=== PATIENT | male | born 1995 | race Caucasian/White ===

== ENCOUNTER 2018-11-20 16:38 | Emergency (ER) | payer MEDICAID ==
[~2018-11-20] VITALS: Wt 60.9 kg
--- NOTE | 2018-11-20 18:13 | ERD ---
ER Documentation Chief Complaint Chief Complaint bib self, cc; cwp and cough since thanks giving HPI 23-year-old male, previously healthy, presents to the emergency department, complaining of 2 months with intermittent episodes of chest pain and cough. The patient states that his mother recently passed of lung cancer and he is very concerned about his lungs, he politely is requesting chest x-rays. Otherwise, he denies fevers, no chills, no shortness of breath, no dizziness. ROS All systems reviewed and are negative except as per history of present illness. Medications Home Meds Active Scripts Acetaminophen* (Tylenol*) 325 Mg Tablet, 2 TAB PO Q8 PRN for PAIN AND OR ELEVATED TEMP, #20 TAB Prov:ALEXI BYRNE MD 11/20/18 Allergies Allergies: Coded Allergies: No Known Allergy (Unverified , 11/20/18) PMhx/Soc Medical and Surgical Hx: pt denies Medical Hx, pt denies Surgical Hx Hx Alcohol Use: No Hx Substance Use: No Hx Tobacco Use: No Smoking Status: Never smoker Physical Exam Vitals Physical Exam Const: No acute distress Head: Atraumatic Eyes: Normal Conjunctiva ENT: Normal External Ears, Nose and Mouth. Neck: Full range of motion. No meningismus. Resp: Clear to auscultation bilaterally Cardio: Regular rate and rhythm, no murmurs Abd: Soft, non tender, non distended. Normal bowel sounds Skin: No petechiae or rashes Back: No midline or flank tenderness Ext: No cyanosis, or edema Neur: Awake and alert Psych: Normal Mood and Affect Results 24 hrs DIAGNOSTIC IMAGING REPORT Patient: ABIOLA REYNOSO : 1995 Age: 23 Sex: M [id number] DOS: 11/20/18 1812 Ordering MD: ALEXI BYRNE MD Location: [facility] Room/Bed: PROCEDURE: XR Chest PA and Lateral CLINICAL INDICATION: Chest wall pain TECHNIQUE: PA and Lateral views of the chest were obtained. COMPARISON: None. FINDINGS: Cardiovascular: The cardiovascular silhouette appears unremarkable. Lung Luo: The lung luo appear clear with no nodule, alveolar infiltrate, or interstitial prominence evident. Pleural Spaces: No pneumothorax is identified and no effusion is evident. Osseous Structures: The osseous structures appear intact. Soft Tissues: The soft tissues appear unremarkable. IMPRESSION: Unremarkable chest. Physician Camron Date Time Electronically viewed and signed by Esha Eubanks Physician on 11/20/2018 18:32 Procedures/MDM Vital signs stable. Differential diagnosis include but not limited to: URI, PNA, chostochondritis, GERD, musculoskeletal injury, less likely PE, pericarditis, endocarditis. Pertinent Data: 12 Lead ECG: Sinus rhythm, no ST changes, normal T wave, normal intervals Radiology: Chest x-rays: Normal Physical examination and clinical presentation consistent most likely with atypical chest pain most likely secondary to anxiety. During the ED course the patient remained stable, no new complaints. Results and clinical impression discussed with patient who agrees with management. The patient is stable to be treated outpatient and will be discharged home. The patient was instructed to follow up with the primary care provider in the next 48h. If symptoms persist, worsen or new symptoms develop, then patient should return to the ED immediately. Instructions explained and given directly by me to the patient with acknowledgment and demonstrated understanding. Disclaimer: Inadvertent spelling and grammatical errors are likely due to EHR/dictation software use and do not reflect on the overall quality of patient care. Also, please note that the electronic time recorded on this note does not necessarily reflect the actual time of the patient encounter. Departure Diagnosis: Primary Impression: Chest wall pain Condition: Stable Additional Instructions: Thank you very much for allowing us to participate in your care. Your health and safety is our top priority at [facility]. Call your primary care doctor TOMORROW for an appointment during the next 2-4 days and bring all the information and medications prescribed. Have prescriptions filled and follow precisely the directions on the label. If the symptoms get worse and your provider is unavailable, return to the Emergency Department immediately. ALEXI BYRNE MD Nov 20, 2018 18:13
[2018-11-20] MEDS ORDERED: ACET325T33 PO (18:47)
[2018-11-20 18:55] VITALS: BP 120/65; PULSE 77; RESP 18
== END 2018-11-20 18:56 | disposition home or self-care (01) ==
LOC: FTE 16:38
DX: R07.89 Other chest pain (principal)
CPT/HCPCS: 71046; 93005; Z7502